=== PATIENT | male | born 1950 | race Caucasian/White ===

== ENCOUNTER → 2023-06-23 09:44 | Outpatient (REF) | payer MEDICARE, SELFPAY | LOC: RAD 09:44 | PROVIDERS: ATTENDING PHYSICIAN Surgery Vascular Surgery; FAMILY PHYSICIAN Family Medicine | DX: I77.9 Disorder of arteries and arterioles, unspecified (principal); I65.23 Occlusion and stenosis of bilateral carotid arteries | CPT/HCPCS: 93880; 93922; 93925 ==

== ENCOUNTER → 2024-01-11 13:37 | Outpatient (REF) | payer MEDICARE, SELFPAY | LOC: DHVS 13:37 | PROVIDERS: ATTENDING PHYSICIAN Registered Nurse; FAMILY PHYSICIAN Family Medicine | DX: I77.9 Disorder of arteries and arterioles, unspecified (principal); I65.23 Occlusion and stenosis of bilateral carotid arteries | CPT/HCPCS: 93880; 93922; 93925 ==

== ENCOUNTER → 2025-01-22 10:48 | Outpatient (REF) | payer MEDICARE, SELFPAY | LOC: DHVS 10:48 | PROVIDERS: ATTENDING PHYSICIAN Surgery Vascular Surgery; FAMILY PHYSICIAN Family Medicine | DX: I77.9 Disorder of arteries and arterioles, unspecified (principal); I65.23 Occlusion and stenosis of bilateral carotid arteries | CPT/HCPCS: 93880; 93922 ==